=== PATIENT | female | born 1990 | race Asian ===

== ENCOUNTER 2023-09-09 23:52 | Emergency (ER) | payer SELFPAY ==
[~2023-09-09] VITALS: Ht 165.1 cm; Wt 55.0 kg
[2023-09-10 00:01] VITALS: BP 134/70; PULSE 97; RESP 14; TEMP 98.3; O2SAT 97
[2023-09-10] MEDS ORDERED: MAGNESIUM/ALUMINUM HYDROXIDE/SIMETHICONE 30ML UDC PO STA (00:01)
[2023-09-10] MEDS ORDERED: SODIUM CHLORIDE 0.9% 1,000 ML IV ONE (00:15)
[2023-09-10] MEDS ORDERED: METOCLOPRAMIDE HCL 10MG/2ML VIAL IV ONE (00:15)
== END 2023-09-10 01:13 | disposition left against medical advice (07) ==
LOC: ER 23:52
DX: R11.2 Nausea with vomiting, unspecified (principal)
CPT/HCPCS: 99283; 93005; J7030